=== PATIENT | female | born 1990 | race Caucasian/White ===

== ENCOUNTER 2022-02-07 21:43 | Emergency (ER) | payer BC ==
[~2022-02-07] VITALS: Ht 167.6 cm; Wt 134.1 kg
[2022-02-07 22:11] VITALS: TEMP 98.4
[2022-02-07 22:48] LABS: COLLECTION METHOD CLEAN CATCH
[2022-02-07 22:50] LABS: BASO % 0.3 % (0.0-2.0); EOS # 0.1 K/mm3 (0.0-0.7); EOS % 0.5 % (0.0-4.0); GRAN # 10.3 K/mm3 (1.4-6.5); GRAN % 78.4 % (42.2-75.2); HEMATOCRIT 39.7 % (37.0-47.0); HEMOGLOBIN 13.6 g/dl (12.5-16.0); LYMPH # 2.1 K/mm3 (1.2-3.4); LYMPH % 15.6 % (20.0-51.0); MEAN CELL VOLUME 85 fl (80.0-100.0); MEAN CORPUSCULAR HEMOGLOBIN 29 pg (27-31); MEAN CORPUSCULAR HGB CONC 34 g/dl (33.0-37.0); MEAN PLATELET VOLUME 9.2 fl (7.4-10.4); MONO # 0.7 K/mm3 (0.1-0.6); PLATELET COUNT 259 K/mm3 (130-400); RED BLOOD COUNT 4.66 M/mm3 (4.10-5.30); REDCELL DISTRIBUTION WIDTH-CV 13.1 % (11.5-14.5)
[2022-02-07 23:03] LABS: AMORPHOUS CRYSTAL Present (NOT PRESENT); SQUAMOUS EPITHELIAL 0-2 /hpf (0-10); URINE BACTERIA Rare /hpf (NONE SEEN); URINE RBC 0-2 /hpf (0-2)
[2022-02-07 23:04] LABS: PH 7.5 (5.0-8.5); URINE APPEARANCE Clear (CLEAR/HAZY); URINE COLOR Yellow (YELLOW); URINE PROTEIN(semi-quant) Negative (NEGATIVE)
[2022-02-07 23:05] LABS: URINE BLOOD TRACE-INTACT (NEGATIVE); URINE GLUCOSE Negative (NEGATIVE); URINE KETONE Negative (NEGATIVE); URINE NITRATE Negative (NEGATIVE); URINE UROBILINOGEN 0.2 E.U/dL (0.2-1.0)
[2022-02-07 23:11] LABS: ALBUMIN 3.5 gm/dL (3.5-5.0); BILIRUBIN,TOTAL 0.5 mg/dL (0.2-1.2); CREATININE, serum 0.81 mg/dL (0.57-1.11); POTASSIUM 3.7 mmol/L (3.5-4.5); TOTAL PROTEIN 7.3 gm/dL (6.2-8.1)
[2022-02-07] MEDS ORDERED: REGLAN 10MG10 MG/TAB PO (23:53)
[2022-02-08 00:05] VITALS: BP 144/78; PULSE 78
== END 2022-02-08 00:05 | disposition home or self-care (01) ==
LOC: COL.ER 21:43
PROVIDERS: Physician Assistant
DX: O99.611 Diseases of the digestive system complicating pregnancy, first trimester (principal); K21.9 Gastro-esophageal reflux disease without esophagitis; O99.111 Other diseases of the blood and blood-forming organs and certain disorders involving the immune mechanism complicating pregnancy, first trimester; D72.829 Elevated white blood cell count, unspecified; Z87.42 Personal history of other diseases of the female genital tract; Z79.84 Long term (current) use of oral hypoglycemic drugs; Z3A.13 13 weeks gestation of pregnancy
CPT/HCPCS: J2765

== ENCOUNTER 2022-08-05 06:39 | Inpatient (IN) | payer BC ==
[~2022-08-05] VITALS: Ht 167.6 cm; Wt 140.5 kg
[2022-08-05] VITALS (49 sets, daily range): BP systolic 116–196; BP diastolic 54–101; PULSE 60–123; TEMP 97.4–99
[~2022-08-05 06:39] MED LIST: REGLAN 10MG10 MG/TAB PO
--- NOTE | 2022-08-05 06:45 | NUR ---
0645 - PATIENT AMBULATORY TO LDR5 ACCOMPANIED BY MOTHER. PATIENT ORIENTED TO ROOM. PATIENT CHANGES INTO GOWN. 0700 - PATIENT ON MONITOR. PLAN OF CARE REVIEWED AND PATIENT AGREEABLE TO PLAN. CARE ONGOING.
--- NOTE | 2022-08-05 06:50 | NUR ---
0650 - PATIENT REPORTS TO L&D FOR INDUCTION OF LABOR. PATIENT DENIES LEAKING OF FLUID, BLOODY SHOW AND CONTRACTIONS. PATIENT REPORTS GOOD MOVEMENT. CARE ONGOING.
[2022-08-05] MEDS ORDERED: SINGULAIR 110 MG/TAB PO (07:10)
[2022-08-05] MEDS ORDERED: GLUCOPHAGE1000 MG PO (07:11)
[2022-08-05] MEDS ORDERED: ZYRTEC 10MG10 MG PO (07:11)
[2022-08-05] MEDS ORDERED: PRILOSEC10 MG PO (07:13)
--- NOTE | 2022-08-05 08:00 | NUR ---
08 - MD KAYLEIGH AT BEDSIDE. PLAN OF CARE REVIEWED. 0805 - SVE PERFORMED BY MD KAYLEIGH. 2. VERTEX. WELL APPLIED. 0806 - AROM PERFORMED BY . CLEAR FLUID NOTED. FSE PLACED BY . 0808 - PERICARE PERFORMED. PATIENT REPOSITIONED. CARE ONGOING.
[2022-08-05 08:20] LABS: BASO % 0.2 % (0.0-2.0); EOS # 0.1 K/mm3 (0.0-0.7); EOS % 0.8 % (0.0-4.0); GRAN # 8.2 K/mm3 (1.4-6.5); GRAN % 73.7 % (42.2-75.2); HEMOGLOBIN 11.4 g/dl (12.5-16.0); LYMPH % 17.5 % (20.0-51.0); MEAN CELL VOLUME 83 fl (80.0-100.0); MEAN CORPUSCULAR HEMOGLOBIN 27 pg (27-31); MEAN CORPUSCULAR HGB CONC 33 g/dl (33.0-37.0); MEAN PLATELET VOLUME 10.4 fl (7.4-10.4); MONO # 0.8 K/mm3 (0.1-0.6); MONO % 7.4 % (1.7-9.3); PLATELET COUNT 242 K/mm3 (130-400); RED BLOOD COUNT 4.16 M/mm3 (4.10-5.30); REDCELL DISTRIBUTION WIDTH-CV 13.9 % (11.5-14.5)
[2022-08-05 08:22] LABS: HEMATOCRIT 34.7 % (37.0-47.0)
--- NOTE | 2022-08-05 09:15 | NUR ---
0915 - TOCO TRACING INDISCERNIBLE DUE TO MATERNAL POSITION. TOCO ADJUSTED. CARE ONGOING.
--- NOTE | 2022-08-05 09:45 | NUR ---
0930 - TOCO TRACING INDISCERNIBLE DUE TO MATERNAL POSITION. TOCO ADJUSTED. CARE ONGOING. 0945 - TOCO TRACING INDISCERNIBLE DUE TO MATERNAL POSITION. PATIENT REPOSITIONED. TOCO ADJUSTED. CARE ONGOING.
--- NOTE | 2022-08-05 10:00 | NUR ---
1000 - TOCO TRACING INDISCERNIBLE DUE TO MATERNAL POSITION AND HABITUS. TOCO ADJUSTED AND PATIENT REPOSITIONED. CARE ONGOING.
--- NOTE | 2022-08-05 10:30 | NUR ---
1012 - SVE PERFORMED BY YOSSI ROWAN. /-2. BLOODY SHOW NOTED. PATIENT REPOSITIONED. 1014 - FSE NO LONGER TRACING. FHR US MONITOR PLACED ON PATIENT AND ADJUSTED. 1027 - FSE REPLACED. 1030 - FSE TRACING WELL. TOCO TRACING INDISCERNIBLE. PATIENT REPOSITIONED AND TOCO ADJUSTED. CARE ONGOING.
--- NOTE | 2022-08-05 10:35 | NUR ---
1035 - PATIENT REQUESTS EPIDURAL. JOANNA IBRAHIM NOTIFIED FOR ANESTHESIA. LR BOLUS INITIATED. 1045 - JOANNA IBRAHIM AT BEDSIDE. PATIENT POSITIONED SITTING EDGE OF BED. TIMEOUT PERFORMED. TOCO TRACING DIFFICULT TO INTERPRET DUE TO MATERNAL POSITION. 1100 - TEST DOSE GIVEN PER JOANNA. 1105 - PATIENT REPOSITIONED. TOCO ADJUSTED. CARE ONGOING.
--- NOTE | 2022-08-05 11:00 | NUR ---
1100 - TOCO TRACING INDISCERNIBLE DUE TO MATERNAL POSITION AND HABITUS. PATIENT REPOSITIONED AND TOCO ADJUSTED. CARE ONGOING.
--- NOTE | 2022-08-05 11:55 | NUR ---
1155 - MD KAYLEIGH AT BEDSIDE. PLAN OF CARE DISCUSSED. 1156 - SVE PERFORMED BY . /2. IUPC PLACED BY . 1200 - PERICARE PERFORMED. PATIENT REPOSITIONED. CARE ONGOING.
[2022-08-05 12:57] LABS: ALBUMIN 2.5 gm/dL (3.5-5.0); BILIRUBIN,TOTAL 0.2 mg/dL (0.2-1.2); CREATININE, serum 0.72 mg/dL (0.57-1.11); POTASSIUM 4.2 mmol/L (3.5-4.5); TOTAL PROTEIN 6.4 gm/dL (6.2-8.1)
[2022-08-05 13:27] LABS: COLLECTION METHOD IN
[2022-08-05 13:33] LABS: URINE APPEARANCE Clear (CLEAR/HAZY); URINE BLOOD 2+ (NEGATIVE); URINE COLOR Yellow (YELLOW); URINE GLUCOSE Negative (NEGATIVE); URINE KETONE 4+ (NEGATIVE); URINE NITRATE Negative (NEGATIVE); URINE PROTEIN(semi-quant) 1+ (NEGATIVE); URINE UROBILINOGEN 0.2 E.U/dL (0.2-1.0)
[2022-08-05 13:42] LABS: MUCOUS Present (NOT PRESENT); SQUAMOUS EPITHELIAL 0-2 /hpf (0-10); URINE BACTERIA None Seen /hpf (NONE SEEN); URINE RBC 20-50 /hpf (0-2); URINE WBC 0-2 /hpf (0-2)
--- NOTE | 2022-08-05 15:00 | NUR ---
1500 - IUPC BASELINE HARD TO DISCERN RELATED TO MATERNAL POSITION. ZEROED. CARE ONGOING.
--- NOTE | 2022-08-05 15:11 | NUR ---
1511 - MD KAYLEIGH NOTIFIED OF MOST RECENT EXAM. 1. 1516 - PATIENT POSITIONED IN RIGHT SIDE LYING HIP RELEASE. 1526 - PATIENT POSITIONED IN LEFT SIDE LYING HIP RELEASE. 1550 - MD KAYLEIGH AT BEDSIDE. SVE PERFORMED BY . WITH CONTRACTION PER . PERICARE PERFORMED. PATIENT REPOSITIONED. CARE ONGOING.
--- NOTE | 2022-08-05 16:35 | NUR ---
1635 - MD KAYLEIGH AT BEDSIDE. SVE PERFORMED BY . WITH CONTRACTION. BLOODY SHOW NOTED. PROLONGED ACCEL FOLLOWING SCALP STIM. 1636 - PROLONGED DECEL NOTED. MD REMAINS AT BEDSIDE. PATIENT REPOSITIONED. 1640 - FHR RETURNS CLOSE TO BASELINE THEN DECEL NOTED AGAIN. NOT PROLONGED. 1643 - FSE REPLACED BY . FHR AT BASELINE. WILL CONTINUE TO MONITOR.
--- NOTE | 2022-08-05 17:34 | NUR ---
1734 - PITOCIN INCREASED TO 16MU/MIN PER PROVIDER REQUEST CONTRACTIONS SPACED OUT. 1735 - LATE DECEL NOTED. 1740 - LATE DECEL NOTED. PATIENT REPOSITIONED. 175 - SVE PERFORMED BY THIS RN. ANTERIOR LIP NOTED. 175 - MD KAYLEIGH CALLED AND NOTIFIED OF ABOVE EXAM. STATES SHE IS ON HER WAY IN. 175 - MD KAYLEIGH AT BEDSIDE. SVE PERFORMED BY . PATIENT COMPLETE AND +2. CARE ONGOING.
--- NOTE | 2022-08-05 18:15 | NUR ---
1805 - BOLANOS D/C. PATIENT BEGINS PUSHSING WITH CONTRACTIONS. GOOD MATERNAL EFFORT. MD KAYLEIGH REMAINS AT BEDSIDE. 1809 - FSE REMOVED BY MD KAYLEIGH. PATIENT CONTINUES PUSHING WITH CONTRACTIONS. US FHR ATTEMPTED. TRACING INDISCERNIBLE. BROOKE FAULKNER RN AT BEDSIDE FOR SHIFT REPORT. 1815 - FSE REPLACED BY MD KAYLEIGH. FHR IN 90'S. O2 MASK ON PATIENT VIA MASK AT 10LPM. LR BOLUS INITIATED. PITOCIN GTT OFF. PATIENT POSITIONED WEDGE LEFT. CARE ONGOING.
--- NOTE | 2022-08-05 18:30 | NUR ---
1830 - BROOKE FAULKNER RN ASSUMING CARE OF PATIENT. BEDSIDE REPORT COMPLETE. CARE ONGOING.
--- NOTE | 2022-08-05 18:35 | NUR ---
Pt pushing, stating "I'm not sure if that's a contraction" unable to lift or hold legs. This RN and pt's mother coaching, holding legs. FHT's 110-120's via FSE, varibles noted to 80's-90's. Pitocin gtt continues off. Dr Jeronimo continues @ L&D desk, observing FHT's. 1841 Dr Jeronimo into room, assesses pushing by vaginal exam. coaches. 1842 Pitocin gtt restarted at [address] Jeronimo's vebal order[address] Dr Jeronimo leaves room, continues @ L&D desk.
--- NOTE | 2022-08-05 18:58 | NUR ---
Nette area and lower legs cleaned up r/t multiple vaginal exams and bloody show. 2 min surgical prep to potential C/S site. 1899 Dr Jeronimo in, assesses pushing via SVE, coaches pushing. . Pitocin to [address] Jeronimo out of room. 1903 FHT's to 80's with onset of pushing, returns to baseline by end of contraction. Pt continues ?aware of onset of contraction, difficult to assess by palpation d/t pt's body habitus. Minimal desecnet noted with pt pushng. O2 off per pt, stating "It's making me hot and it's hard to breathe with it on" 1911 Dr Jeronimo out of hospital.
--- NOTE | 2022-08-05 19:14 | NUR ---
FHT's with late decel to 80'-90's. O2 on 10l/mask, LR to bolus. 1917 FHT's rebound to 160's, then down to 70's with next cont, to 110's after cpntraction. Pushing 1921 LR bolus contoniues. Pushing, descent noted. FHT's continue baseline 110's with decelerations noted. 1924 with peak of contractions and pushing. FHT's 80's to 100's. Dr Jeronimo called to come for delivery. 1931 Pt set up for delivery, continues increasing without pushing, enc to deep breathe with cont and not bear down. Dr Jeronimo into room, perineal prep. [address] Jeronimo. Infant to Pt's abd.
--- NOTE | 2022-08-05 19:37 | NUR ---
st cath by Dr Jeronimo with return of est 50cc clear yellow urine. Dr Jeronimo collect cord blood for pt's Cord Banking Kit.
--- NOTE | 2022-08-05 19:42 | NUR ---
Placenta delivers spont and intact with 3 vessell cord. Large free flow, small clots, fundal massage, Pitocin to bolus rate.. Repair of perineal laceration started by Dr Jeronimo. Communication Skills Instructor into room for assist. Trailing membranes noted by Dr Jeronimo. manual retrieval "while epidural is still working" Dr Jeronimo retrieval of membranes, lochia slows to moderate. Perineal repair complete. pericare performed, ice pack to perineum. bed together.
--- NOTE | 2022-08-05 22:30 | NUR ---
IV to INT, epidural catheter dc'd. Up to bathroom with steady gait, voids good amount, performs own pericare after instruction. pads, panties, clean gown on. Pt denies dizziness, states "i"m just really tired" transfer to room via 'sue Zakazaka' without difficulty. Oriented to room, plan of care. Quetions invited and answered.
--- NOTE | 2022-08-06 | NUR ---
Assumed care at this time. 0015 - asleep on her left side at this time.
[2022-08-06 03:00] VITALS: BP 126/59; PULSE 92; TEMP 97.7
[2022-08-06] MEDS ORDERED: MOTRIN 800800 MG/TAB PO (06:20)
[2022-08-06 07:10] VITALS: BP 114/58; PULSE 77; TEMP 98.1
--- NOTE | 2022-08-06 10:55 | NUR ---
Initial visit; Patient and her Mother were present. Stem Roller offered congratulations and God's blessings to Mom for the of her daughter and information regarding the availability of Spiritual Care at [facility].
[2022-08-06 16:14] VITALS: BP 133/76; PULSE 80; TEMP 97.5
--- NOTE | 2022-08-06 16:36 | NUR ---
REPORT GIVEN TO YOSSI MCDOWELL.
[2022-08-06 20:30] VITALS: BP 117/58; PULSE 87; TEMP 97.6
[2022-08-07 07:15] VITALS: BP 108/50; PULSE 80
== END 2022-08-07 10:40 | disposition home or self-care (01) | DRG 807 ==
LOC: OB 06:39 → LDR 06:39 → OB 10:26
PROVIDERS: ADMIT Obstetrics & Gynecology
PROC: 10E0XZZ Delivery of Products of Conception, External Approach (ICD-10-PCS; principal; 2022-08-05)
PROC: 0KQM0ZZ Repair Perineum Muscle, Open Approach (ICD-10-PCS; 2022-08-05)
PROC: 0UQMXZZ Repair Vulva, External Approach (ICD-10-PCS; 2022-08-05)
PROC: 10907ZC Drainage of Amniotic Fluid, Therapeutic from Products of Conception, Via Natural or Artificial Opening (ICD-10-PCS; 2022-08-05)
PROC: 3E033VJ Introduction of Other Hormone into Peripheral Vein, Percutaneous Approach (ICD-10-PCS; 2022-08-05)
DX: O24.424 Gestational diabetes mellitus in childbirth, insulin controlled (principal); Z37.0 Single live birth; O76 Abnormality in fetal heart rate and rhythm complicating labor and delivery; O77.0 Labor and delivery complicated by meconium in amniotic fluid; O71.82 Other specified trauma to perineum and vulva; O70.1 Second degree perineal laceration during delivery; O99.214 Obesity complicating childbirth; E66.9 Obesity, unspecified; O99.02 Anemia complicating childbirth; D64.9 Anemia, unspecified; O99.824 Streptococcus B carrier state complicating childbirth; O13.4 Gestational [pregnancy-induced] hypertension without significant proteinuria, complicating childbirth; Z3A.38 38 weeks gestation of pregnancy; Z79.84 Long term (current) use of oral hypoglycemic drugs
CPT/HCPCS: J0690; J2405; J2590; J7120

== ENCOUNTER → 2022-08-22 | Outpatient (CLI) | payer BC ==
[~2022-08-22] MED LIST changes: +GLUCOPHAGE1000 MG PO; +MOTRIN 800800 MG/TAB PO; +PRILOSEC10 MG PO; +SINGULAIR 110 MG/TAB PO; +ZYRTEC 10MG10 MG PO
--- NOTE | 2022-08-22 15:10 | NUR ---
Pt, Carla Hall, presents for walk-in clinic with 17 day old baby girl, Suzan Hall, to evaluate milk supply and transfer with BF. Suzan was born on [birth year] and weighed 6# 11.2oz (3039gms). She was seen at clinic one week ago and weighed 6# 9.8oz (2999gms). Pt has continued with offering Suzan the breast ~4x per day, and bottle feeding 2..5-3oz q 2-3 hours. She also pumps ~4 times daily, collecting on average 10ml per pumping. Pt has increased her herbal supplements over the last week. Today Suzan weighs 7#5.4oz (3328 gms). After bilaterally Suzan has a gain of 4gms. She is then feed 2oz formula by bottle. POC: Pt may continue to BF and pump to improve milk supply, she understands the pump is more effective than . Continue with bottle feeding as well. F/U: Walk-in clinic as desired, as scheduled with physicians. Questions invited and answered.
== END ==
LOC: LAC 13:39
DX: Z39.1 Encounter for care and examination of lactating mother (principal); Z71.89 Other specified counseling